=== PATIENT | female | born 1950 | race Caucasian/White ===

== ENCOUNTER → 2017-03-01 | Day surgery (SDC) | payer MEDICARE ==
[~2017-03-01] MED LIST: ACCOLATE10 MG PO; ACCOLATE20 MG; ACCOLATE20 MG PO; ADVAIR 5001 DISK W/D PO; ALBUTEROL 0.5ML INH; ALBUTEROL MININEB NEB; ALPRAZOLAM PO; ASPIRIN81 M2 PO; ATROVASTATIN PO; CIPRO PO; COLACE CLEAR50 MG PO; COMBIVENT INH14.7 GM; COMBIVENT INH14.7 GM INH; COMBIVENT MININEB INH; COMBIVENT U/D3 M2 INH; DIFLUCAN100 MG PO; DIFLUCAN200 MG PO; DITROPAN5 MG PO; FLEXERIL10 MG PO; FLOMAX0.4 M1 DOB; ISOSORBIDE MONO30 M1 PO; KEFLEX; KEFLEX500 M1 PO; KEFLEX500 MG PO; LISINOPRIL PO; LORAZEPAM1 MG PO; LORTAB 7.5-5001 TAB PO; LYRICA PO; MACROBID 100 M100 MG PO; METFORMIN PO; METOPROLOL TAR25 MG PO; MILK OF MAGNESIA PO; MINI NEBS; MIRALAX17 G2 PO; MIRALAX17 GM PO; MORPHINE SULFAT60 M2 PO; MS CONTIN60 M1 PO; NEXIUM; NEXIUM PO; NORVASC PO; NYSTATIN5 ML PO; OXYCODON HCL-1 UDTAB PO; PERCOCET 10/3251 TAB PO; PERCOCET10 PO; PHENERGAN12.5 MG PO; PHENERGAN25 M1 PO; PLAVIX PO; PREDNISONE; PROTONIX PO; PYRIDIUM100 MG PO; ROCEPHIN IV; SINGULAIR PO; TIZANIDINE HCL4 M1 PO; TRADJENTA5 MG PO; VIBRAMYCIN100 M1 PO; VIT E PO; ZAFIRLUKAST20 MG PO
--- NOTE | ~2017-03-01 | OR ---
Unit #: [id number] #: [id number] Patient: KIRA RIOS [id number] [address] [place], [place] [address] [id number] O MR#: [id number] NAME: KIRA RIOS ROOM: Date of Procedure: 03/01/2017 Admission Date: 03/01/2017 Surgeon: Jayy Moncada M.D. : 1950 Attending Physician: Jayy Moncada M.D. Primary Care Physician: Linda Gerardo A.P.R.N. OPERATIVE REPORT PREOPERATIVE DIAGNOSES 1. Right ureteral stricture. 2. Left flank pain. POSTOPERATIVE DIAGNOSES 1. Right ureteral stricture. 2. Left flank pain. PROCEDURES PERFORMED 1. Cystoscopy. 2. Bilateral retrograde pyelograms. 3. Interpretation of bilateral retrograde pyelograms. 4. Right 7-Georgian x 26 cm double-J stent change, with no string attached. 5. Left ureteroscopy. 6. Left 7-Georgian x 26 cm double-J stent change with string attached. ANESTHESIA General. INDICATIONS FOR PROCEDURE Mrs. Rios is a pleasant lady with a right distal ureteral stricture for which she has declined definitive surgery. She also states that she is having left flank pain in the preoperative area, which she states feels like a stone. Based on this, risks, benefits, and alternatives including bleeding, infection, damage to adjacent structures including kidney, ureter, bladder and urethra, need for nephrostomy tube, and all other perioperative risks were discussed with the patient. Informed consent was obtained. She wished to proceed. DESCRIPTION OF PROCEDURE The patient was taken to the operative suite and properly identified. After the application of satisfactory general anesthetic, the patient was placed in dorsal lithotomy position. All pressure points were padded to satisfaction of surgical, anesthetic, and nursing teams. Her genitalia were prepped and draped in the usual sterile fashion. I first passed a 22-Georgian cystoscope. I sent a urine culture from the bladder. I grasped the right double-J stent. I brought it out the meatus. I passed a 0.035 Sensor wire. I passed a Pollack catheter over the wire. I shot a right retrograde pyelogram. The interpretation was as follows. Interpretation of right retrograde pyelogram: There was no hydronephrosis. There was a single collecting system. There was delayed Unit #: [id number] #: [id number] Patient: KIRA RIOS drainage in the distal ureter. I placed the wire. I passed a 7-Georgian x 26 cm double-J stent. I then passed a 0.035 Sensor wire on the left. I passed a Pollack catheter over the wire. I shot a left retrograde pyelogram. The interpretations were as follows. Interpretation of left retrograde pyelogram: There was a single collecting system. There was no hydronephrosis. There was some mildly delayed drainage in the left distal ureter. Based on this and based on her symptomatology, I elected to do left ureteroscopy. I discussed this with her preoperatively and she consented to me for this verbally, both with her and her daughter. I looked my way up the ureter using the semi-rigid ureteroscope. There was no stone in the distal ureter. I then passed a flexible ureteroscope over the wire. I performed panendoscopy of the kidney. There were some Indio plaques and intraparenchymal calcifications, but no stones at the collecting system. I carefully looked my way out of the entire ureter. There was no stricture. There were no stones. I placed wire and passed a 7-Georgian x 26 cm double-J stent, which coiled in the kidney and in the bladder. I did leave a string attached. PLAN The right stent will be changed in 3 months. The left stent will be removed in 1 week. She does have a string. Dictated by... Jayy Moncada M.D. HILDA/susy TD: 03/02/2017 03:14 JOB #: [id number] OPERATIVE REPORT Page 1 of 1 X Jayy Moncada MD X PROCEDURE OPERATIVE NOTE
--- NOTE | ~2017-03-01 | EKG ---
PATIENT: KIRA VAZQUEZ UNIT #: [id number] Ventricular Rate: 93 BPM Atrial Rate: 93 BPM P-R Interval: 160 ms QRS Duration: 82 ms Q-T Interval: 360 ms QTC Calculation(Bezet): 447 ms P Tully: 67 degrees Calculated R Tully: -16 degrees Calculated T Tully: 58 degrees Diagnosis Line: Normal sinus rhythm Diagnosis Line: Low voltage QRS Diagnosis Line: Borderline ECG Diagnosis Line: No previous ECGs available Diagnosis Line: Confirmed by YADIRA LAWRENCE MD ([id number]) on 03/02/2017 Diagnosis Line: 11:15:45 PM INTERPRETING MD: MELINDA LOUIS
[2017-03-01 11:41] LABS: HEMATOCRIT 34.1 % (35.0-45.0); HEMOGLOBIN 10.8 gm/dL (12.0-16.0); MEAN CELL VOLUME 85.5 FL (83-96); MEAN CORPUSCULAR HEMOGLOBIN 27.2 PG (28-34); MEAN CORPUSCULAR HGB CONC 31.8 g/dL (30-36); MEAN PLATELET VOLUME 8.5 FL (6.5-11.5); RED BLOOD COUNT 3.99 X10e (3.90-5.30); RED CELL DISTRIBUTION WIDTH 16.3 % (11.0-15.5); WHITE BLOOD COUNT 7.7 X10e3 (4.0-10.5)
[2017-03-01 12:15] LABS: BUN/CREATININE RATIO 13.75; CALCIUM SERUM 8.7 mg/dL (8.4-10.2); CREATININE SERUM 1.6 mg/dL (0.6-1.4); GLOM FILT RATE Estimated 32.6 mL/min (>60); POTASSIUM 4.3 mmol/L (3.5-5.1)
[2017-03-01 13:37] LABS: URINE SOURCE CATH
[2017-03-01 13:53] LABS: URINE APPEARANCE CLOUDY; URINE BILIRUBIN NEG (NEG); URINE BLOOD 3+ (NEG); URINE COLOR YELLOW; URINE GLUCOSE NEG (NEG); URINE KETONE NEG (NEG); URINE LEUKOCYTE ESTERASE 3+ (NEG); URINE NITRATE NEG (NEG); URINE PROTEIN 1+ (NEG); URINE SPECIFIC GRAVITY 1.014 (1.003-1.035); URINE UROBILINOGEN 0.2 MG/DL (NEG)
[2017-03-01 13:55] LABS: U HYALINE CASTS AUWI 0-2 /[LPF]; URBCS1 AUWI 100-200 /[HPF] (0-2); URINE BACTERIA AUWI NEG (NEGATIVE); URINE SQUAMOUS EPITHELIAL CELL NONE SEEN /[HPF]; UWBCS1 AUWI INNUM (0-5)
== END | disposition home or self-care (01) ==
LOC: CSUR 10:34
PROVIDERS: Urology
DX: N13.5 Crossing vessel and stricture of ureter without hydronephrosis (principal); J44.9 Chronic obstructive pulmonary disease, unspecified; M81.0 Age-related osteoporosis without current pathological fracture; J45.909 Unspecified asthma, uncomplicated; Z90.89 Acquired absence of other organs; Z90.49 Acquired absence of other specified parts of digestive tract; Z96.641 Presence of right artificial hip joint; Z90.710 Acquired absence of both cervix and uterus; Z87.19 Personal history of other diseases of the digestive system; Z87.442 Personal history of urinary calculi; Z88.0 Allergy status to penicillin; Z88.1 Allergy status to other antibiotic agents; Z79.899 Other long term (current) drug therapy; Z87.891 Personal history of nicotine dependence
CPT/HCPCS: 80048; 81003; 82947; 85027; 87086; 93005; C2617; J0690; J1642; J2405; J3010

== ENCOUNTER → 2017-05-14 | Day surgery (SDC) | payer MEDICARE ==
--- NOTE | ~2017-05-14 | OR ---
Unit #: [id number] #: [id number] Patient: KIRA VAZQUEZ [id number] [address] [place], [place] [address] [id number] O MR#: [id number] NAME: KIRA VAZQUEZ ROOM: Date of Procedure: 05/14/2017 Admission Date: 05/14/2017 Surgeon: Jayy Moncada M.D. : 1950 Attending Physician: Jayy Moncada M.D. Primary Care Physician: Linda Gerardo A.P.R.N. OPERATIVE REPORT PREOPERATIVE DIAGNOSIS Right ureteral stricture. POSTOPERATIVE DIAGNOSIS Right ureteral stricture. PROCEDURES PERFORMED 1. Cystoscopy. 2. Right retrograde pyelogram. 3. Right ureteroscopy. 4. Right stone basket extraction. 5. Right 7-Monegasque x 26 cm double-J stent placement. No string attached. ANESTHESIA General. INDICATIONS FOR PROCEDURE The patient is a pleasant female with a right ureteral stricture and chronic stone disease. She desires definitive treatment. At this point, she has previously declined this. Risks, benefits, alternatives including bleeding, infection, damage to adjacent structures, need for further surgery, as well as risk of anesthesia were explained to the patient. Informed consent was obtained. She wished to proceed. FINDINGS Right distal ureteral stricture in mid right pelvis. DESCRIPTION OF PROCEDURE The patient was taken to the operative suite and properly identified. After the application of satisfactory general anesthetic, the patient was placed in dorsal lithotomy position. Genitalia were prepped and draped in usual sterile fashion. I introduced a rigid 22-Monegasque cystoscope. I removed the stent. I passed a 0.035 Sensor wire, which coiled in the right renal pelvis. I passed the rigid ureteroscope along the side of stent in the right mid ureter approximately 3 to 4 cm from the ureterovesical junction. There was a short stricture, which we previously dilated. I looked my way beyond this. There was a small stone in the proximal ureter. I grasped this with a Nitinol basket and removed atraumatically. I passed a dual-lumen catheter, and a second 0.035 Sensor wire. It coiled in the right renal pelvis. I passed a flexible ureteroscope over the wire. I performed panendoscopy. There were no stones in the kidney. I carefully looked my way out. I shot a right Unit #: [id number] #: [id number] Patient: KIRA VAZQUEZ retrograde pyelogram. There was severe right hydronephrosis and normal ureter down to a filling not done and delayed drainage in the right distal ureter. I backloaded the wire over the cystoscope. I passed the 7-Monegasque x 26 cm double-J stent, which coiled in the right kidney and in the bladder. No string was attached. Bladder was emptied. The scope was removed. PLAN We will get a MAG3 renal scan to assess her renal function and her split function to determine if she needs a reimplant versus a nephrectomy. If she does get a right reimplant, I would favor placing a nephrostomy tube and removing her stent for several weeks preoperatively. Dictated by... Estiven Herrera/ssuy TD: 05/15/2017 02:17 JOB #: [id number] OPERATIVE REPORT Page 1 of 1 X Jayy Moncada MD X PROCEDURE OPERATIVE NOTE
== END | disposition home or self-care (01) ==
LOC: CSUR 05-13 07:30
DX: N13.2 Hydronephrosis with renal and ureteral calculous obstruction (principal); N13.1 Hydronephrosis with ureteral stricture, not elsewhere classified; K21.9 Gastro-esophageal reflux disease without esophagitis; J44.9 Chronic obstructive pulmonary disease, unspecified; E11.9 Type 2 diabetes mellitus without complications; J45.909 Unspecified asthma, uncomplicated; Z90.710 Acquired absence of both cervix and uterus; Z90.49 Acquired absence of other specified parts of digestive tract; Z98.890 Other specified postprocedural states; Z87.442 Personal history of urinary calculi; Z88.0 Allergy status to penicillin; Z88.1 Allergy status to other antibiotic agents; Z87.891 Personal history of nicotine dependence; Z79.899 Other long term (current) drug therapy; Z79.891 Long term (current) use of opiate analgesic
CPT/HCPCS: 76000; 82947; 87086; C2617; J0690; J1642; J2250; J2405; J3010

== ENCOUNTER → 2017-05-21 | Outpatient (CLI) | payer MEDICARE ==
--- NOTE | ~2017-05-21 | NM29 ---
[facility] A Service of [facility] & [facility] RADIOLOGY TEXT RESULTS PATIENT: KIRA VAZQUEZ LOCATION: [facility] : 46 UNIT #: [id number] AGE: [address]: Jayy Moncada MD SEX: F ORDER DR: [id number] [facility] [address] [place], [place] [address] [id number] O MR#: [id number] Acc #: [id number] NAME: KIRA VAZQUEZ. : 1950 SEX: F STUDY DATE/TIME: 05/21/2017 10:21 UNIT: CNUC ROOM: STUDY DESCRIPTION: NM Kidney Vasc Flow Sng W Attending Physician: Jayy Moncada M.D. Referring Physician: Jayy Moncada M.D. Ordering Physician: Jayy Moncada M.D. Primary Care Physician: Linda Gerardo A.P.R.N. MEDICAL IMAGING REPORT This report is preliminary unless electronic signature is present EXAM Lasix renogram. INDICATIONS This patient has a history of kidney stones dating back to 1982. She currently has a right ureteral stent and has a known history of left-sided hydronephrosis. TECHNIQUE Patient was administered 4.09 mCi technetium-99m MAG-3; 40 mg of Lasix was injected at 9 minutes into the study. FINDINGS Patient has delayed radiotracer uptake within the right kidney, when compared to the left. The patient's peak time on the left is 11 and on the right is 12. Nnpe-cb-bemt on the right is 34 and on the left is 14. Split differential is 62% on the left and 38% on the right. Following the administration of the Lasix, the patient does have excretion of radiotracer, although I think clearance is slightly delayed; however, I suspect this is probably related to a distended system rather than to true obstruction. Patient has minimal response to Lasix on the right, and, certainly, the delayed T-1/2 on the right would be suggestive of obstruction. I do wonder if some of the diminished response to the Lasix may be related to the patient's relatively poorly functioning right kidney, but, again, I think some degree of obstruction cannot be excluded. IMPRESSION 1. Patient does have a response to Lasix on the left although I do think the clearance is mildly delayed. I suspect, however, this is probably related to slower clearance of a dilated collecting system. CT would certainly be complementary, as patient's last CT was performed in February 2016. 2. This patient shows delayed uptake within the right kidney with really STS. [facility] A Service of [facility] RADIOLOGY TEXT RESULTS PATIENT: KIRA VAZQUEZ LOCATION: [facility] : 48 UNIT #: [id number] AGE: [address]: Jayy Moncada MD SEX: F ORDER DR: minimal response to Lasix. T-1/2 is also delayed and I think findings probably do reflect at least some degree of obstruction. However, I also suspect that the kidney is probably relatively poorly functioning, which may blunt the response to the diuretic. 3. Patient's ERPF on the right is 41.61 and on the left is 79.30. Dictated by... Kita Fink M.D. THIS IS AN ELECTRONICALLY VERIFIED REPORT Kita Fink M.D. at 05/25/2017 5:00 PM AFF/psc TD: 05/24/2017 22:07 JOB #: [id number] MEDICAL IMAGING REPORT Page 1 of 1 COPY
== END | disposition home or self-care (01) ==
LOC: CNUC 08:55
DX: N13.30 Unspecified hydronephrosis (principal); R94.4 Abnormal results of kidney function studies
CPT/HCPCS: 78708; A9562; J1940

== ENCOUNTER → 2017-05-28 | Outpatient (CLI) | payer MEDICARE ==
[2017-05-28 11:23] LABS: BASOPHIL# 0.1 X10e3 (0-0.3); EOSINOPHIL# 0.3 X10e3 (0-0.7); EOSINOPHIL% 4.5 % (0.0-7.0); HEMATOCRIT 36.9 % (35.0-45.0); HEMOGLOBIN 11.7 gm/dL (12.0-16.0); LYMPHOCYTE# 1.2 X10e3 (1.0-3.5); LYMPHOCYTE% 17.6 % (17.0-45.0); MEAN CORPUSCULAR HEMOGLOBIN 27.7 PG (28-34); MEAN CORPUSCULAR HGB CONC 31.8 g/dL (30-36); MEAN PLATELET VOLUME 8.6 FL (6.5-11.5); MONOCYTE# 0.6 X10e3 (0-1.0); MONOCYTE% 8.7 % (3.0-12.0); NEUTROPHIL# 4.8 X10e3 (1.5-7.1); NEUTROPHIL% 68.2 % (40-75); PLATELET COUNT 197 X10e3 (140-420); RED BLOOD COUNT 4.24 X10e (3.90-5.30); WHITE BLOOD COUNT 7.1 X10e3 (4.0-10.5)
[2017-05-28 11:32] LABS: DIFF IND NO
[2017-05-28 11:41] LABS: PROTHROMBIN TIME (PATIENT) 10.9 SECONDS (10.0-11.7)
[2017-05-28 12:10] LABS: ALBUMIN SERUM 3.4 g/dL (3.5-5.0); BILIRUBIN,TOTAL 0.3 mg/dL (0.2-2.0); BUN/CREATININE RATIO 14.37; CALCIUM SERUM 8.5 mg/dL (8.4-10.2); CREATININE SERUM 1.6 mg/dL (0.6-1.4); GLOM FILT RATE Estimated 32.6 mL/min (>60); POTASSIUM 4.2 mmol/L (3.5-5.1); PROTEIN TOTAL SERUM 7.4 g/dL (6.0-8.3)
== END | disposition home or self-care (01) ==
LOC: CLAB 09:54
PROVIDERS: Urology
DX: N13.30 Unspecified hydronephrosis (principal)
CPT/HCPCS: 80053; 85025; 85610; 85730; G0463; J1642

== ENCOUNTER → 2017-06-07 | Outpatient (CLI) | payer MEDICARE ==
--- NOTE | ~2017-06-07 | XA159 ---
[facility] A Service of [facility] RADIOLOGY TEXT RESULTS PATIENT: KIRA VAZQUEZ LOCATION: [facility] : 48 UNIT #: [id number] AGE: [address]: Jayy Moncada MD SEX: F ORDER DR: [id number] [facility] [address] [place], [place] [address] [id number] O MR#: [id number] Acc #: [id number] NAME: KIRA VAZQUEZ : 1950 SEX: F STUDY DATE/TIME: 06/07/2017 7:15 UNIT: [facility] ROOM: STUDY DESCRIPTION: XA Nephrostomy Tube Placement Attending Physician: Jayy Moncada M.D. Referring Physician: Jayy Moncada M.D. Ordering Physician: Jayy Moncada M.D. Primary Care Physician: Linda Gerardo A.P.R.N. MEDICAL IMAGING REPORT This report is preliminary unless electronic signature is present EXAM Ultrasound and fluoroscopic guided placement of right-sided nephrostomy tube. INDICATIONS 67-year female with hydronephrosis and a right ureteral stent. The ureteral stent is to be removed and the patient is then to have surgery. The patient's urologist requests a nephrostomy tube placement prior to stent removal. The fluoroscopy time was 2.6 minutes. 2 spot fluoroscopic images were taken. Medications administered 3 mg of Versed IV and 100 mcg of Fentanyl IV. A total of 1 hour of sedation time was monitored by appropriately credentialed radiology nursing staff with nmnm-yj-ixoc direct supervision by Dr. Hawkins for 25 minutes. 12 mL of contrast was injected into the renal collecting system. The risks, benefits and alternatives of the procedure were discussed with the patient and informed consent was obtained. In the procedure room, a time-out was performed confirming correct patient and procedure. All elements of maximum sterile-barrier technique utilized according to guidelines appropriate for the procedure. TECHNIQUE/FINDINGS Ultrasound of the right kidney was performed which demonstrated hydronephrosis. The overlying skin was prepped and draped in the usual sterile fashion. 1% lidocaine was utilized to anesthetize the skin and underlying subcutaneous tissues. Next, using full standard sterile barrier technique including sterile caps, gowns, gloves, masks, drapes, 2% Chlorhexidine percutaneous antisepsis, real-time sterile ultrasound guidance was utilized and a lower pole susan was accessed using a 21-gauge needle. Through this access, a small amount of contrast was injected [facility] RADIOLOGY TEXT RESULTS PATIENT: KIRA VAZQUEZ [id number] 46 UNIT #: [id number] AGE: [address]: Jayy Moncada MD SEX: F ORDER DR: confirming satisfactory positioning. Next, an 0.18 guidewire was advanced to the needle. The needle was removed and a transitional dilator was advanced over the guidewire. The inner stiffener and 0.18 catheter were removed and next a superstiff Amplatz guidewire was advanced through the transitional dilator. The transitional dilator was removed. The tract was serially dilated and next a 8-Sri Lankan pigtail catheter was advanced over the guidewire and positioned within the renal pelvis. Contrast was injected confirming satisfactory positioning. A spot image was taken confirming satisfactory positioning. The catheter was flushed and was hooked to gravity bag drainage and was sutured into place. Sterile dressing was applied. The patient tolerated procedure well without immediate complications. IMPRESSION Technically successful ultrasound and fluoroscopic guided placement of a right nephrostomy tube. Dictated by... Nic Hawkins M.D. THIS IS AN ELECTRONICALLY VERIFIED REPORT Nic Hawkins M.D. at 06/09/2017 7:44 AM DELMY/lorelei TD: 06/08/2017 08:41 JOB #: [id number] MEDICAL IMAGING REPORT Page 1 of 1 COPY
[2017-06-07 06:51] LABS: HEMATOCRIT 34.6 % (35.0-45.0); MEAN CORPUSCULAR HEMOGLOBIN 27.7 PG (28-34); MEAN CORPUSCULAR HGB CONC 31.8 g/dL (30-36); RED BLOOD COUNT 3.97 X10e (3.90-5.30); WHITE BLOOD COUNT 6.7 X10e3 (4.0-10.5)
[2017-06-07 07:08] LABS: PARTIAL THROMBOPLASTIN TIME 26.3 SECONDS (23.5-31.3); PROTHROMBIN TIME (PATIENT) 10.8 SECONDS (10.0-11.7)
== END | disposition home or self-care (01) ==
LOC: CIVR 06:17
PROVIDERS: Urology
DX: N13.1 Hydronephrosis with ureteral stricture, not elsewhere classified (principal); N17.9 Acute kidney failure, unspecified; N20.0 Calculus of kidney; N20.1 Calculus of ureter
CPT/HCPCS: 36415; 74425; 74485; 76942; 85027; 85610; 85730; C1729; J1642; J2250; J3010; Q9967

== ENCOUNTER 2017-07-05 10:54 | Inpatient (IN) | payer MEDICARE ==
[~2017-07-05] VITALS: Ht 157.5 cm; Wt 82.0 kg
--- NOTE | ~2017-07-05 | XA160 ---
[facility] A Service of [facility] RADIOLOGY TEXT RESULTS PATIENT: KIRA VAZQUEZ LOCATION: [facility] 577-01 : [birth year] UNIT #: [id number] AGE: [address]: Jayy Moncada MD SEX: F ORDER DR: [id number] [facility] [address] [place], [place] [address] [id number] MR#: [id number] Acc #: [id number] NAME: KIRA VAZQUEZ. : 1950 SEX: F STUDY DATE/TIME: 07/12/2017 12:10 UNIT: [facility] ROOM: [facility] STUDY DESCRIPTION: XA Nephrostomy Tube Removal Attending Physician: Jayy Moncada M.D. Ordering Physician: Jayy Moncada M.D. Primary Care Physician: Linda Gerardo A.P.R.N. MEDICAL IMAGING REPORT This report is preliminary unless electronic signature is present EXAM Nephrostomy tube removal HISTORY Patient had reconstructive bladder surgery. There is a right ureteral stent in place as well as a right percutaneous nephrostomy tube. Nephrostomy tube removal is requested with fluoroscopic guidance to ensure lack of compromise of the existing ureteral stent with removal. PROCEDURE Informed consent was obtained. With fluoroscopic monitoring, the existing nephrostomy tube was cut and removed. There were no complications and there was no contact with or displacement of the existing double J ureteral stent. Total fluoro time 0.3 minutes with 2 spot images obtained. IMPRESSION Successful fluoroscopically monitored removal of a percutaneous nephrostomy tube without complication. Dictated by... Otoniel Tabares M.D. THIS IS AN ELECTRONICALLY VERIFIED REPORT Otoniel Tabares M.D. at 07/16/2017 4:52 PM AYESHA/tara TD: 07/13/2017 11:00 [facility] A Service [facility] RADIOLOGY TEXT RESULTS PATIENT: KIRA VAZQUEZ LOCATION: [facility] 577-01 : [birth year] UNIT #: [id number] AGE: [address]: Jayy Moncada MD SEX: F ORDER DR: JOB #: [id number] MEDICAL IMAGING REPORT Page 1 of 1 COPY
--- NOTE | ~2017-07-05 | OR ---
Unit #: [id number] #: [id number] Patient: KIRA RIOS [id number] [address] [place], [place] [address] [id number] MR#: [id number] NAME: KIRA RIOS ROOM: [facility] Date of Procedure: 07/05/2017 Admission Date: 07/05/2017 Surgeon: Jayy Moncada M.D. : 1950 Attending Physician: Jayy Moncada M.D. Primary Care Physician: Linda Gerardo A.P.R.N. PROCEDURE OPERATIVE NOTE PREOPERATIVE DIAGNOSIS Right ureteral stricture. POSTOPERATIVE DIAGNOSIS Right ureteral stricture. PROCEDURES PERFORMED 1. Exploratory laparotomy. 2. Lysis of adhesions. 3. Repair of enterotomy. 4. Right ureteral reimplant with psoas hitch. SURGEONS Jayy Moncada M.D. and Christopher Cox M.D. ANESTHESIA General. INDICATION FOR PROCEDURE Ms. Rios is a pleasant 67-year-old female with a right distal ureteral stricture. She has multiple comorbidities. She has been cleared by her pulmonary doctor. She has had multiple previous surgeries including hernia repair with mesh. The risks, benefits, and alternatives including bleeding, infection, damage to adjacent structures, and need for further surgery, as well as the risk of anesthesia were explained to the patient. Fully informed was obtained, and she wished to proceed. It should be noted that she was bowel prepped before surgery. DESCRIPTION OF PROCEDURE The patient was taken to the operating suite and properly identified. After the application of satisfactory general anesthetic, patient was placed in the supine positive and frog-legged. Her abdomen and genitalia were prepped and draped in the usual sterile fashion. We made a midline incision. Bovie electrocauterization was used to carry this down to the fascia. The fascia was sharply opened. She had dense adhesions, and she had a prior hernia repair with mesh. An enterotomy was made which was repaired with 3-0 silk Lembert stitches. The repair was well vascularized, tension free, and water tight. I had the assistance of Dr. Christopher Cox at this point. I obtained an intraoperative consultation, and he assisted extensively with the lysis of adhesions and removal of the mesh. We were able to mobilize the bowel. The Bookwalter self-retaining retractor was placed and the right colon was mobilized along the white line of Toldt. The right ureter was exposed as it crossed the iliac Unit #: [id number] #: [id number] Patient: KIRA RIOS. It was a very dilated right ureter. To confirm that this was the right ureter, we injected methylene blue through the nephrostomy tube, and we noted this when I aspirated. I dissected this down to approximately 3 cm below the common iliac vessel. The ureter was ligated and divided with an 0 silk tie. I mobilized the bladder. I made an anterior cystotomy. I mobilized the bladder up to the right psoas. I performed a psoas hitch using 2-0 Vicryl x2 into the psoas tender. Care was taken to ensure that we did not injure the nerve. We made a cystotomy in the dome as close to the base as I could. I widely spatulated the ureter. The anastomosis was performed with 4-0 PDS simple interrupted sutures. The anastomosis was tension free, water tight, and well vascularized. I performed this over a 6-Estonian x 20 cm double-J stent. The bladder was closed in two layers of 2-0 Vicryl running suture. I irrigated the bladder to approximately 300 mL. The anastomosis and closure were water tight. At this point, the wound was copiously irrigated. (1) in their entirety. A 10 mm flat EDITH drain was placed in a right lower quadrant stab incision, and this was secured with a 2-0 silk drain stitch. I closed the fascia with #1 Vicryl interrupted makvqb-xq-yioaf sutures. The wound was copiously irrigated. The skin was closed with adelfo. The patient tolerated the procedure well without complications. Estimated blood loss was 400 mL. Dictated by... Estiven Herrera TD: 07/05/2017 21:21 JOB #: [id number] PROCEDURE OPERATIVE NOTE Page 1 of 1 X Jayy Moncada MD X PROCEDURE OPERATIVE NOTE
--- NOTE | ~2017-07-05 | DS ---
Unit #: [id number] #: [id number] Patient: KIRA VAZQUEZ [id number] [address] [place], [place] [address] [id number] I MR#: [id number] NAME: KIRA VAZQUEZ. ROOM: 577 Age: 67 Sex: F Admission Date: 07/05/2017 : 1950 Discharge Date: 07/14/2017 Attending Physician: Jayy Moncada M.D. Primary Care Physician: Linda Gerardo A.P.R.N. DISCHARGE SUMMARY ADMITTING DIAGNOSIS Right ureteral stricture for hydronephrosis. DISCHARGE DIAGNOSES 1. Right ureteral stricture for hydronephrosis, status post right ureteral reimplant with psoas hitch and repair of enterotomy. 2. Postoperative respiratory failure. ADMITTING INFORMATION The patient is a pleasant 67-year-old female with a right distal ureteral stricture. After pulmonary clearance was obtained the risks, benefits and alternatives of the above procedure were discussed with the patient and informed consent was obtained. She wished to proceed. HOSPITAL COURSE The patient was admitted on 07/05/2017. She underwent the above procedure. She was postoperative admitted to the intensive care unit and kept on a ventilator overnight. She did have a nasogastric tube postoperatively. She was extubated on postoperative day one. She was followed by Dr. Martins with pulmonary and Dr. oCx with general surgery. On postoperative day two she was transferred to the TCU. She was placed on a morphine HEAD USHER. Her electrolytes were replaced. Her nasogastric tube was removed on postoperative day three. She was given physical therapy as well as pulmonary therapy and she did continue to improve. She was started on a clear liquid diet on postoperative day four and this was advanced and she tolerated this. She did have some right thigh pain, which correlated with bladder spasm. She had no muscular deficit and no sensory deficit, but at the time of what appeared to be bladder spasm she was having right anterior thigh pain. She underwent a venous Doppler ultrasound which was negative and her neuromuscular and neural sensation was completely intact. She underwent a cystogram which was negative. Her Mendoza catheter was removed. This did improve her symptoms. She also underwent removal of her nephrostomy tube. She did have some diarrhea. Her c-diff was negative. At the time of discharge she is tolerating a diet. Her pain was controlled. She is stable for discharge home. DISCHARGE MEDICATIONS 1. She will resume her admitting medications. 2. Ditropan 5 mg p.o. t.i.d. FOLLOWUP She will follow up with me in one week for staple removal. She will follow up sooner with any concerns including temperature of greater than 101, inability to tolerate fluids, pain not controlled by p.o. pain Unit #: [id number] #: [id number] Patient: KIRA VAZQUEZ medications, wound concerns, chest pain, unilateral lower extremity swelling, shortness of breath or any other concerns. Dictated by... Jayy Moncada M.D. MDP/gz TD: 07/15/2017 08:46 JOB #: [id number] CC: Estiven Herrera M.D. John Wesley McConnell, M.D. John N. Olsofka, M.D. DISCHARGE SUMMARY Page 1 of 1 X Jayy Moncada MD X DISCHARGE SUMMARY
--- NOTE | ~2017-07-05 | OR ---
Unit #: [id number] #: [id number] Patient: KIRA VAZQUEZ [id number] [address] [place], [place] [address] [id number] I MR#: [id number] NAME: KIRA VAZQUEZ ROOM: [facility] Date of Procedure: 07/05/2017 Admission Date: 07/05/2017 Surgeon: Jayy Moncada M.D. : 1950 Platen Grinder(s): Tasia Cobb C.F.A. Attending Physician: Jayy Moncada M.D. Primary Care Physician: Linda Gerardo A.P.R.N. PROCEDURE OPERATIVE NOTE ADDENDUM TENTERING MACHINE OFF BEARER Tasia Cobb was certified shorthand reporter. She was present and scrubbed and assisted throughout the entire case. Dictated by... Estiven Herrera/benjamin TD: 07/05/2017 21:50 JOB #: [id number] PROCEDURE OPERATIVE NOTE Page 1 of 1 X Jayy Moncada MD X PROCEDURE OPERATIVE NOTE
--- NOTE | ~2017-07-05 | OR ---
Unit #: [id number] #: [id number] Patient: KIRA VAZQUEZ [id number] [facility]. [place], [place] [address] [id number] Casi MR#: [id number] NAME: KIRA VAZQUEZ. ROOM: 577 Date of Procedure: 07/05/2017 Admission Date: 07/05/2017 Surgeon: Christopher Cox M.D. : 1950 Attending Physician: Jayy Moncada M.D. Primary Care Physician: Linda Gerardo A.P.R.N. OPERATIVE REPORT PREOPERATIVE DIAGNOSES 1. Chronic urinary obstruction, requiring ureteral reimplantation of the bladder. 2. History of ventral hernia repair. POSTOPERATIVE DIAGNOSES 1. Chronic urinary obstruction, requiring ureteral reimplantation of the bladder. 2. History of ventral hernia repair. PROCEDURES PERFORMED 1. Extensive adhesiolysis, requiring approximately 45 minutes of operative time. 2. Removal of previously placed laparoscopic ventral hernia repair mesh. ANESTHESIA General anesthetic. ESTIMATED BLOOD LOSS 50 mL. IV FLUIDS 800 crystalloid. COMPLICATIONS None. INDICATIONS FOR PROCEDURE The patient is a 67-year-old, who is undergoing a ureteral reimplantation. During laparotomy, she was found to have a large piece of mesh from previous laparoscopic ventral hernia repair. Entering into the abdomen, she was also found to have significant adhesions. During partial dissection, there was an enterotomy which was then repaired. I was asked by Dr. Jayy Moncada to evaluate and assist with mesh removal and adhesiolysis. DESCRIPTION OF PROCEDURE The patient was undergoing operation at this time. I then scrubbed and assessed the laparotomy. The patient was found to have a piece of Gladstone-Sridhar mesh that had been placed laparoscopically. There were multiple adhesions of the bowel to this piece of mesh. There was a small 1.5 cm enterotomy in the small bowel adjacent to this mesh. I began by doing an Unit #: [id number] #: [id number] Patient: KIRA VAZQUEZ extensive adhesiolysis and took down all adhesions off the mesh. I inspected the repair of the small bowel enterotomy. This was felt to be fully intact. Then using Bovie electrocautery and scissors dissection, I was able to remove the entire piece of mesh freeing up the fascial edges for future closure. I did run the small bowel and the colon and saw no other evidence of injury. The patient then underwent completion of her procedure without further complication. Dictated by... Estiven Lares/susy TD: 07/06/2017 11:12 JOB #: [id number] OPERATIVE REPORT Page 1 of 1 X Christopher Cox MD X PROCEDURE OPERATIVE NOTE
--- NOTE | ~2017-07-05 | US85 ---
[facility] A Service of [facility] RADIOLOGY TEXT RESULTS PATIENT: KIRA VAZQUEZ LOCATION: [facility] [address] : [birth year] UNIT #: [id number] AGE: [address]: Jayy Moncada MD SEX: F ORDER DR: [id number] [facility] [address] [place], [place] [address] [id number] I MR#: [id number] Acc #: [id number] NAME: KIRA VAZQUEZ. : 1950 SEX: F STUDY DATE/TIME: 07/10/2017 14:23 UNIT: [facility] ROOM: [facility] STUDY DESCRIPTION: US LE Veins Unilat or Ltd Stdy Attending Physician: Jayy Moncada M.D. Ordering Physician: Jayy Moncada M.D. Primary Care Physician: La AvinaRAiden MEDICAL IMAGING REPORT This report is preliminary unless electronic signature is present COULD NOT FIND ORDER EXAM Ultrasound lower extremity venous Doppler, unilateral study. CLINICAL HISTORY Right lower extremity pain for a week since bladder surgery. No known history of DVT. COMMENT Real-time ultrasonography of the right lower extremity deep venous system was performed with 2-D howe-scale compression imaging, color-flow Doppler imaging and waveform analysis. FINDINGS Normal flow and compressibility is seen throughout the right lower extremity deep venous system. Nothing to suggest acute appearing deep venous thrombosis. The greater saphenous veins unremarkable. IMPRESSION No evidence for acute appearing deep venous thrombosis right lower extremity deep venous system. STAT * RESULT Dictated by... Margaret Lowery M.D. THIS IS AN ELECTRONICALLY VERIFIED REPORT Margaret Lowery M.D. at 07/11/2017 9:20 AM SAC/jt [facility] A Service of [facility] RADIOLOGY TEXT RESULTS PATIENT: KIRA VAZQUEZ LOCATION: [place] [address] : [birth year] UNIT #: [id number] AGE: [address]: Jayy Moncada MD SEX: F ORDER DR: TD: 07/10/2017 15:44 JOB #: [id number] MEDICAL IMAGING REPORT Page 1 of 1 COPY
--- NOTE | ~2017-07-05 | CR80 ---
[facility] A Service of [facility] RADIOLOGY TEXT RESULTS PATIENT: KIRA VAZQUEZ LOCATION: [facility] 57-01 : [birth year] UNIT #: [id number] AGE: [address]: Jayy Moncada MD SEX: F ORDER DR: [id number] [facility] [address] [place], [place] [address] [id number] I MR#: [id number] Acc #: [id number] NAME: KIRA VAZQUEZ : 1950 SEX: F STUDY DATE/TIME: 07/12/2017 11:54 UNIT: [facility] ROOM: [facility] STUDY DESCRIPTION: CR Cystogram Min 3 Views SI Attending Physician: Jayy Moncada M.D. Ordering Physician: Jayy Moncada M.D. Primary Care Physician: Linda Gerardo A.P.R.N. MEDICAL IMAGING REPORT This report is preliminary unless electronic signature is present EXAM Cystogram 07/12/2017 HISTORY Recent bladder surgery, clinical concern for possible bladder leak. PROCEDURE Study performed with 150 mL of Cystografin, 1.3 minutes of fluoroscopy and 13 spot images. FINDINGS There is some reflux into the distal ureter. Postsurgical appearance of the bladder but no evidence of leak. IMPRESSION Negative cystogram, performed at relatively low volume, no evidence of leak though there is reflux into the right ureter. Dictated by... Otoniel Tabares M.D. THIS IS AN ELECTRONICALLY VERIFIED REPORT Otoniel Tabares M.D. at 07/16/2017 4:54 PM TEV/psc TD: 07/13/2017 03:53 JOB #: [id number] MEDICAL IMAGING REPORT Page 1 of 1 COPY
--- NOTE | ~2017-07-05 | CO ---
Unit #: [id number] #: [id number] Patient: KIRA RIOS [id number] [facility]. [place], [place] [address] [id number] I MR#: [id number] NAME: KIRA RIOS ROOM: [facility] Age: 67 Sex: F Admission Date: 07/05/2017 : 1950 Attending Physician: Jayy Moncada M.D. Primary Care Physician: Linda Gerardo A.P.R.N. CONSULTATION REPORT HISTORY OF PRESENT ILLNESS Miss Rios is a 67-year-old white female who was admitted to the hospital postoperatively after right ureteral reimplant, exploratory laparotomy, lysis of adhesions and enterotomy repair. She is maintained on the ventilator. We were asked to see for ICU care and ventilator. She is being seen the morning after surgery. Her weaning parameters were good. Her RSBI was 20. Tidal volume was 583. Arterial blood gasses on CPAP 5, pressure support of 8, 40%, revealed a pH of 7.49, pCO2 of 28, pO2 of 185. She has a #[address]. Her chest x-ray shows NG tube in esophagus, clear lung alex, no infiltrate. PAST MEDICAL HISTORY Past medical history is significant for COPD followed by Dr. Siva Webb. She is maintained on DuoNeb/Combivent. She has a history of recurrent nephrolithiasis with ureteral stricture requiring multiple procedures. History of gastroesophageal reflux, chronic kidney disease followed by Dr. Dickson, diabetes, history of large bowel obstruction requiring surgical intervention, history of obstructive sleep apnea, noncompliant with CPAP. PAST SURGICAL HISTORY Multiple urologic procedures, cholecystectomy, hysterectomy, right hip surgery, ventral hernia repair. ALLERGIES Penicillin, sulfa. FAMILY HISTORY Coronary artery disease. SOCIAL HISTORY Lives with granddaughter, I believe. Quit smoking in the past. HOME MEDICATIONS Home medications listed include MS Contin, Combivent, Protonix, albuterol, Tradjenta, Phenergan, MiraLAX, Percocet, Lorazepam, Accolate. REVIEW OF SYSTEMS Not possible, patient intubated. PHYSICAL EXAMINATION GENERAL: White female, orally intubated, 7.0 ET tube. VITAL SIGNS: Blood pressure 122/79. Pulse 123. Respiratory rate 16. Unit #: [id number] #: [id number] Patient: KIRA RIOS Temperature 101.6. HEENT: Normocephalic and atraumatic. Pupils equal, round and reactive. Sclerae nonicteric. Nasal passages patent. Posterior pharynx clear. A #7 ET tube. NECK: Supple. Trachea midline. No cervical or supraclavicular lymphadenopathy. LUNGS: Clear to auscultation and percussion. CARDIAC: Regular rate and rhythm. Could not appreciate murmur, rub or gallop. ABDOMEN: Postop bandaged status post laparoscopy. EXTREMITIES: Without cyanosis, clubbing or edema. NEUROLOGIC: Sedated, on vent. SKIN: Warm and dry. DIAGNOSTIC STUDIES LABORATORY: Studies reviewed, as noted. White blood cell count 10.4, hematocrit 29.1, creatinine 1.4. IMAGING: Chest x-ray reviewed, as noted. IMPRESSION 1. Postoperative respiratory failure. 2. Chronic obstructive pulmonary disease. 3. Status post exploratory laparotomy, lysis of adhesions, enterotomy repair and right ureteral reimplant on psoas. 4. Chronic kidney disease. 5. Obstructive sleep apnea, noncompliant with CPAP. 6. Diabetes. 7. Chronic pain. PLAN Will let patient awaken from sedation. She has passed weaning parameters and breathing trial. Will extubate, place on supplemental oxygen, maintain sat at 92% or better, continue nebulizer treatment, discontinue any benzodiazepines. Pain control with morphine. Pulmonary hygiene and incentive spirometer. Mobilize as soon as possible. Dictated by... Gab Martins M.D. ADAM/benjamin TD: 07/06/2017 19:27 JOB #: [id number] CC: Christopher Webb M.D. Unit #: [id number] #: [id number] Patient: KIRA RIOS CONSULTATION REPORT Page 1 of 1 X Gab Martins MD X CONSULTATION REPORT
--- NOTE | ~2017-07-05 | CR72 ---
[facility] A Service of [facility] RADIOLOGY TEXT RESULTS PATIENT: KIRA VAZQUEZ LOCATION: [address] : [birth year] UNIT #: [id number] AGE: [address]: Jayy Moncada MD SEX: F ORDER DR: [id number] [facility] [address]. [place], [place] [address] [id number] I MR#: [id number] Acc #: [id number] NAME: KIRA VAZQUEZ. : 1950 SEX: F STUDY DATE/TIME: 07/06/2017 6:15 UNIT: [facility] ROOM: [facility] STUDY DESCRIPTION: CR Chest Single View Portable Attending Physician: Jayy Moncada M.D. Ordering Physician: Axel Martins M.D. Primary Care Physician: Linda Gerardo A.P.R.N. MEDICAL IMAGING REPORT This report is preliminary unless electronic signature is present EXAM Portable chest. INDICATION Followup respiratory failure and endotracheal tube placement. FINDINGS This portable view of the chest shows the endotracheal tube has its tip 1 cm above the oleksandr. The Port-A-Cath has its tip in the superior vena cava. The lungs are clear and the heart size is normal. The nasogastric tube has its tip in the lower esophagus. It should be advanced at least 10 to 15 cm. IMPRESSION 1. The nasogastric tube tip is in the lower esophagus and needs to be advanced at least 10 [address] it in the stomach. 2. An endotracheal tube tip is about 1 cm above the oleksandr. 3. The lungs are clear. Dictated by... Neri Luna M.D. THIS IS AN ELECTRONICALLY VERIFIED REPORT Neri Luna M.D. at 07/06/2017 1:29 PM FEL/bd TD: 07/06/2017 13:05 JOB #: [id number] MEDICAL IMAGING REPORT Page 1 of 1 COPY
--- NOTE | ~2017-07-05 | CR72 ---
[facility] A Service of [facility] RADIOLOGY TEXT RESULTS PATIENT: KIRA VAZQUEZ LOCATION: [facility] [address] : [birth year] UNIT #: [id number] AGE: [address]: Jayy Moncada MD SEX: F ORDER DR: [id number] [facility] [address]. [place], [place] [address] [id number] I MR#: [id number] Acc #: [id number] NAME: KIRA VAZQUEZ. : 1950 SEX: F STUDY DATE/TIME: 07/07/2017 2:59 UNIT: [facility] ROOM: [facility] STUDY DESCRIPTION: CR Chest Single View Portable Attending Physician: Jayy Moncada M.D. Ordering Physician: Gab Martins M.D. Primary Care Physician: Linda Gerardo A.P.R.N. MEDICAL IMAGING REPORT This report is preliminary unless electronic signature is present EXAM Chest x-ray 07/07/2017 HISTORY Respiratory failure. Follow up cardiopulmonary status. TECHNIQUE AP portable chest x-ray. FINDINGS The patient has been extubated since yesterday. Exam is otherwise unchanged. Fluid or pleural thickening in the left costophrenic angle. Lungs otherwise clear. Heart size and pulmonary vascularity are normal. NG tube below the diaphragm. Central venous port catheter in good position. IMPRESSION 1. Stable portable chest radiograph following extubation since yesterday. 2. NG tube in good position in the stomach. Dictated by... Marcelo Barrientos M.D. THIS IS AN ELECTRONICALLY VERIFIED REPORT Marcelo Barrientos M.D. at 07/07/2017 10:03 PM JENNY/jani TD: 07/07/2017 09:24 JOB #: [id number] MEDICAL IMAGING REPORT Page 1 of 1 COPY
[2017-07-05 18:51] LABS: ARTERIAL BLD GAS O2 SATURATION 98.8 % (90.0-100.0); ARTERIAL BLOOD GAS CARBOXY HB 0.3 %sat (0.0-9.0); ARTERIAL BLOOD GAS HCO3 23.6 mmol/L; ARTERIAL BLOOD GAS PCO2 42.5 mmHg (35.0-45.0); ARTERIAL BLOOD GAS pH 7.353 (7.350-7.450)
[2017-07-05 18:51] LABS: BASOPHIL% 0.4 % (0-2.5); EOSINOPHIL# 0.2 X10e3 (0-0.7); EOSINOPHIL% 2.3 % (0.0-7.0); HEMATOCRIT 29.5 % (35.0-45.0); HEMOGLOBIN 9.6 gm/dL (12.0-16.0); LYMPHOCYTE# 0.6 X10e3 (1.0-3.5); LYMPHOCYTE% 6.1 % (17.0-45.0); MEAN CELL VOLUME 85.9 FL (83-96); MEAN CORPUSCULAR HGB CONC 32.6 g/dL (30-36); MEAN PLATELET VOLUME 8.3 FL (6.5-11.5); MONOCYTE# 0.4 X10e3 (0-1.0); MONOCYTE% 4.5 % (3.0-12.0); NEUTROPHIL# 8.7 X10e3 (1.5-7.1); NEUTROPHIL% 86.7 % (40-75); PLATELET COUNT 191 X10e3 (140-420); RED BLOOD COUNT 3.43 X10e (3.90-5.30); WHITE BLOOD COUNT 10.1 X10e3 (4.0-10.5)
[2017-07-05 18:54] LABS: DIFF IND NO
[2017-07-05 19:04] LABS: CALCIUM SERUM 7.7 mg/dL (8.4-10.2); CREATININE SERUM 1.4 mg/dL (0.6-1.4); GLOM FILT RATE Estimated 38.2 mL/min (>60); POTASSIUM 3.6 mmol/L (3.5-5.1)
[2017-07-05 19:07] LABS: ARTERIAL BLOOD GAS ALLEN TEST NORMAL; ARTERIAL BLOOD GAS ART SITE LEFT RADIAL; ARTERIAL BLOOD GAS DELIVERY VENT; ARTERIAL BLOOD GAS VENT MODE AC; ARTERIAL DRAW? YES
[2017-07-06 05:59] LABS: BASOPHIL# 0.1 X10e3 (0-0.3); BASOPHIL% 0.5 % (0-2.5); EOSINOPHIL% 0.2 % (0.0-7.0); HEMATOCRIT 29.1 % (35.0-45.0); HEMOGLOBIN 9.5 gm/dL (12.0-16.0); LYMPHOCYTE# 0.5 X10e3 (1.0-3.5); LYMPHOCYTE% 4.9 % (17.0-45.0); MEAN CELL VOLUME 85.6 FL (83-96); MEAN CORPUSCULAR HEMOGLOBIN 27.8 PG (28-34); MEAN CORPUSCULAR HGB CONC 32.5 g/dL (30-36); MEAN PLATELET VOLUME 8.5 FL (6.5-11.5); MONOCYTE# 0.8 X10e3 (0-1.0); MONOCYTE% 7.3 % (3.0-12.0); NEUTROPHIL% 87.1 % (40-75); PLATELET COUNT 196 X10e3 (140-420); RED CELL DISTRIBUTION WIDTH 15.6 % (11.0-15.5); WHITE BLOOD COUNT 10.4 X10e3 (4.0-10.5)
[2017-07-06 06:07] LABS: DIFF IND NO
[2017-07-06 06:38] LABS: CALCIUM SERUM 7.9 mg/dL (8.4-10.2); CREATININE SERUM 1.4 mg/dL (0.6-1.4); GLOM FILT RATE Estimated 38.2 mL/min (>60); POTASSIUM 4.3 mmol/L (3.5-5.1)
[2017-07-06 08:28] LABS: ARTERIAL BLD GAS O2 SATURATION 98.7 % (90.0-100.0); ARTERIAL BLOOD GAS ALLEN TEST NORMAL; ARTERIAL BLOOD GAS ART SITE RIGHT RADIAL; ARTERIAL BLOOD GAS CARBOXY HB 0.4 %sat (0.0-9.0); ARTERIAL BLOOD GAS DELIVERY VENT; ARTERIAL BLOOD GAS HCO3 21.7 mmol/L; ARTERIAL BLOOD GAS MET HB 0.8 %sat (0.0-2.0); ARTERIAL BLOOD GAS pH 7.497 (7.350-7.450); ARTERIAL DRAW? YES
[2017-07-06 08:29] LABS: ARTERIAL BLOOD GAS VENT MODE CPAP
[2017-07-07 02:30] LABS: BASOPHIL% 0.3 % (0-2.5); DIFF IND NO; EOSINOPHIL# 0.3 X10e3 (0-0.7); EOSINOPHIL% 3.4 % (0.0-7.0); HEMATOCRIT 25.3 % (35.0-45.0); HEMOGLOBIN 8.5 gm/dL (12.0-16.0); LYMPHOCYTE# 0.7 X10e3 (1.0-3.5); LYMPHOCYTE% 7.8 % (17.0-45.0); MEAN CELL VOLUME 85.4 FL (83-96); MEAN CORPUSCULAR HEMOGLOBIN 28.8 PG (28-34); MEAN CORPUSCULAR HGB CONC 33.7 g/dL (30-36); MEAN PLATELET VOLUME 8.2 FL (6.5-11.5); MONOCYTE# 0.7 X10e3 (0-1.0); MONOCYTE% 7.5 % (3.0-12.0); NEUTROPHIL# 7.6 X10e3 (1.5-7.1); PLATELET COUNT 159 X10e3 (140-420); RED BLOOD COUNT 2.96 X10e (3.90-5.30); WHITE BLOOD COUNT 9.4 X10e3 (4.0-10.5)
[2017-07-07 02:47] LABS: BUN/CREATININE RATIO 8.23; CALCIUM SERUM 7.8 mg/dL (8.4-10.2); CREATININE SERUM 1.7 mg/dL (0.6-1.4); GLOM FILT RATE Estimated 30.2 mL/min (>60); MAGNESIUM 1.7 mg/dL (1.6-3.0); POTASSIUM 3.8 mmol/L (3.5-5.1)
[2017-07-08 02:45] LABS: BASOPHIL# 0.1 X10e3 (0-0.3); BASOPHIL% 0.5 % (0-2.5); DIFF IND NO; EOSINOPHIL% 8.9 % (0.0-7.0); HEMATOCRIT 25.1 % (35.0-45.0); LYMPHOCYTE# 0.8 X10e3 (1.0-3.5); LYMPHOCYTE% 7.4 % (17.0-45.0); MEAN CELL VOLUME 87.2 FL (83-96); MEAN CORPUSCULAR HEMOGLOBIN 27.9 PG (28-34); MEAN PLATELET VOLUME 8.5 FL (6.5-11.5); MONOCYTE# 0.7 X10e3 (0-1.0); MONOCYTE% 6.1 % (3.0-12.0); NEUTROPHIL# 8.3 X10e3 (1.5-7.1); NEUTROPHIL% 77.1 % (40-75); PLATELET COUNT 179 X10e3 (140-420); RED BLOOD COUNT 2.87 X10e (3.90-5.30); RED CELL DISTRIBUTION WIDTH 15.7 % (11.0-15.5); WHITE BLOOD COUNT 10.7 X10e3 (4.0-10.5)
[2017-07-08 03:15] LABS: BUN/CREATININE RATIO 11.25; CALCIUM SERUM 7.8 mg/dL (8.4-10.2); CREATININE SERUM 1.6 mg/dL (0.6-1.4); GLOM FILT RATE Estimated 32.6 mL/min (>60); POTASSIUM 4.2 mmol/L (3.5-5.1)
[2017-07-09 05:15] LABS: HEMATOCRIT 22.8 % (35.0-45.0); HEMOGLOBIN 7.4 gm/dL (12.0-16.0); MEAN CELL VOLUME 85.8 FL (83-96); MEAN CORPUSCULAR HEMOGLOBIN 27.8 PG (28-34); MEAN CORPUSCULAR HGB CONC 32.4 g/dL (30-36); RED BLOOD COUNT 2.66 X10e (3.90-5.30); RED CELL DISTRIBUTION WIDTH 15.6 % (11.0-15.5); WHITE BLOOD COUNT 8.5 X10e3 (4.0-10.5)
[2017-07-09 06:47] LABS: BILIRUBIN,TOTAL 0.1 mg/dL (0.2-2.0); BUN/CREATININE RATIO 12.14; CALCIUM SERUM 7.9 mg/dL (8.4-10.2); CREATININE SERUM 1.4 mg/dL (0.6-1.4); GLOM FILT RATE Estimated 38.2 mL/min (>60); POTASSIUM 3.4 mmol/L (3.5-5.1); PROTEIN TOTAL SERUM 5.6 g/dL (6.0-8.3)
[2017-07-12 05:21] LABS: HEMATOCRIT 22.1 % (35.0-45.0); HEMOGLOBIN 7.4 gm/dL (12.0-16.0); MEAN CELL VOLUME 84.1 FL (83-96); MEAN CORPUSCULAR HGB CONC 33.3 g/dL (30-36); MEAN PLATELET VOLUME 8.1 FL (6.5-11.5); RED BLOOD COUNT 2.63 X10e (3.90-5.30); RED CELL DISTRIBUTION WIDTH 15.5 % (11.0-15.5); WHITE BLOOD COUNT 6.8 X10e3 (4.0-10.5)
[2017-07-12 05:52] LABS: BUN/CREATININE RATIO 7.5; CALCIUM SERUM 7.9 mg/dL (8.4-10.2); CREATININE SERUM 1.2 mg/dL (0.6-1.4); GLOM FILT RATE Estimated 46.1 mL/min (>60); POTASSIUM 3.1 mmol/L (3.5-5.1)
[2017-07-13 02:27] LABS: URINE APPEARANCE CLOUDY; URINE BILIRUBIN NEG (NEG); URINE BLOOD 2+ (NEG); URINE COLOR DK YELLOW; URINE GLUCOSE NEG (NEG); URINE KETONE TRACE (NEG); URINE LEUKOCYTE ESTERASE 3+ (NEG); URINE NITRATE NEG (NEG); URINE PROTEIN 2+ (NEG); URINE SPECIFIC GRAVITY 1.017 (1.003-1.035); URINE UROBILINOGEN 0.2 MG/DL (NEG)
[2017-07-13 02:28] LABS: HEMATOCRIT 21.9 % (35.0-45.0); HEMOGLOBIN 7.5 gm/dL (12.0-16.0); MEAN CELL VOLUME 83.7 FL (83-96); MEAN CORPUSCULAR HEMOGLOBIN 28.6 PG (28-34); MEAN CORPUSCULAR HGB CONC 34.2 g/dL (30-36); MEAN PLATELET VOLUME 7.5 FL (6.5-11.5); RED BLOOD COUNT 2.62 X10e (3.90-5.30); RED CELL DISTRIBUTION WIDTH 15.4 % (11.0-15.5); WHITE BLOOD COUNT 8.3 X10e3 (4.0-10.5)
[2017-07-13 02:30] LABS: URBCS1 AUWI 25-50 /[HPF] (0-2); URINE BACTERIA AUWI NEG (NEGATIVE); URINE SQUAMOUS EPITHELIAL CELL NONE SEEN /[HPF]; UWBCS1 AUWI INNUM (0-5)
[2017-07-13 02:46] LABS: BUN/CREATININE RATIO 11.81; CALCIUM SERUM 7.9 mg/dL (8.4-10.2); CREATININE SERUM 1.1 mg/dL (0.6-1.4); GLOM FILT RATE Estimated 51.2 mL/min (>60); MAGNESIUM 1.7 mg/dL (1.6-3.0); POTASSIUM 3.3 mmol/L (3.5-5.1)
[2017-07-14 05:24] LABS: HEMATOCRIT 23.2 % (35.0-45.0); HEMOGLOBIN 7.7 gm/dL (12.0-16.0); MEAN CELL VOLUME 83.7 FL (83-96); MEAN CORPUSCULAR HEMOGLOBIN 27.8 PG (28-34); MEAN CORPUSCULAR HGB CONC 33.2 g/dL (30-36); MEAN PLATELET VOLUME 7.8 FL (6.5-11.5); RED BLOOD COUNT 2.77 X10e (3.90-5.30); RED CELL DISTRIBUTION WIDTH 15.8 % (11.0-15.5); WHITE BLOOD COUNT 9.7 X10e3 (4.0-10.5)
[2017-07-14 05:49] LABS: BUN/CREATININE RATIO 10.83; CALCIUM SERUM 8.2 mg/dL (8.4-10.2); CREATININE SERUM 1.2 mg/dL (0.6-1.4); GLOM FILT RATE Estimated 46.1 mL/min (>60); POTASSIUM 4.5 mmol/L (3.5-5.1)
[2017-07-14] MEDS ORDERED: DITROPAN5 MG PO (10:41)
== END 2017-07-14 12:40 | disposition home or self-care (01) | DRG 659 ==
LOC: CSUR 10:54 → CEDOF 18:12 → CSUR 18:12 → C5C 18:26 → CEDOF 18:26 → CICCU3 19:05 → C5C 07-07 08:27
PROVIDERS: Family Medicine Sleep Medicine; Surgery; Urology
PROC: 5A1935Z Respiratory Ventilation, Less than 24 Consecutive Hours (ICD-10-PCS; 2017-07-05)
PROC: 0DNE0ZZ Release Large Intestine, Open Approach (ICD-10-PCS; 2017-07-05)
PROC: 0DQ80ZZ Repair Small Intestine, Open Approach (ICD-10-PCS; 2017-07-05)
PROC: 0T760DZ Dilation of Right Ureter with Intraluminal Device, Open Approach (ICD-10-PCS; 2017-07-05)
PROC: 0WPF0JZ Removal of Synthetic Substitute from Abdominal Wall, Open Approach (ICD-10-PCS; principal; 2017-07-05 13:30)
PROC: 0TN60ZZ Release Right Ureter, Open Approach (ICD-10-PCS; 2017-07-05 13:30)
PROC: 0TP5X0Z Removal of Drainage Device from Kidney, External Approach (ICD-10-PCS; 2017-07-12)
DX: N13.1 Hydronephrosis with ureteral stricture, not elsewhere classified (principal); J95.821 Acute postprocedural respiratory failure; J44.9 Chronic obstructive pulmonary disease, unspecified; E11.22 Type 2 diabetes mellitus with diabetic chronic kidney disease; Y83.8 Other surgical procedures as the cause of abnormal reaction of the patient, or of later complication, without mention of misadventure at the time of the procedure; Z90.49 Acquired absence of other specified parts of digestive tract; Z90.710 Acquired absence of both cervix and uterus; Z88.0 Allergy status to penicillin; Z88.2 Allergy status to sulfonamides; G47.33 Obstructive sleep apnea (adult) (pediatric); Z91.19 Patient's noncompliance with other medical treatment and regimen; G89.29 Other chronic pain; N18.9 Chronic kidney disease, unspecified
CPT/HCPCS: 36600; 71010; 74430; 80048; 80053; 81003; 82803; 82947; 83735; 85025; 85027; 86850; 86900; 86901; 86923; 87086; 87493; 93971; 94002; 94003; 94640; 94760; 94761; 94762; 97110; 97116; 97163; 97530; C2617; C9113; G8978-GP; G8979-GP; J0330; J0610; J0690; J1170; J1642; J1885; J1956; J2060; J2250; J2270; J2405; J2765; J3010; J3475; Q4081; Q9958; Q9968